=== PATIENT | female | born 1995 | race African-American/Black ===

== ENCOUNTER 2019-10-23 15:31 | Inpatient (IN) | payer MEDICAID ==
--- NOTE | 2019-10-23 17:00 | RAD ---
Exam:Right elbow 4 view HISTORY: Possible septic elbow. Trauma one week ago. COMPARISON: None FINDINGS: Soft tissue swelling. No obvious capsular distention to suggest joint effusion. No erosive or destructive changes. Preserved joint spaces. No fracture. IMPRESSION: Soft tissue swelling. Correlate for cellulitis.
[2019-10-23 18:51] LABS: #Basophils 0.1 thou/uL (0.0-0.2); #Eosinphils 0.2 thou/uL (0.0-0.7); #Lymphocytes 1.5 thou/uL (1.20-3.40); #Monocytes 1.4 thou/uL (0.11-0.59); #Neutrophils 16.1 thou/uL (1.40-6.50); %Basophils 0.5 % (0.0-1.0); %Eosinophils 0.8 % (0.0-10.0); %Lymphocytes 7.8 % (21.0-51.0); %Monocytes 7.3 % (0.0-10.0); %Neutrophils 83.6 % (42.0-75.0); Hemoglobin 14.6 g/dL (12.0-16.0); Mean Corpuscular HGB CONC 31.6 g/dL (32.0-36.0); Mean Corpuscular Volume 94.9 fL (78.0-98.0); Platelet Count 289 thou/uL (130-400); RBC Distribution Width 12.7 % (11.5-14.5); Red Blood Cell (RBC) Count 4.85 mill/uL (4.20-5.40); White Blood Cell (WBC) Count 19.2 thou/uL (4.8-10.8)
[2019-10-23 19:10] LABS: ALT (SGPT) 38 U/L (8-55); AST (SGOT) 17 U/L (5-34); Alkaline Phosphatase 75 U/L (40-110); Anion Gap 15 mmol/L (10-20); BUN (Urea Nitrogen) 5 mg/dL (7.0-18.7); Bilirubin, Total 0.6 mg/dL (0.2-1.2); Calc. Creatinine Clearance 0 mL/min (70-130); Calcium 9.9 mg/dL (7.8-10.44); Carbon Dioxide 23 mmol/L (22-29); Chloride 109 mmol/L (98-107); Estimated GFR-MDRD Greater than 90; Globulin 4.1 g/dL (2.4-3.5); Glucose 79 mg/dL (70-105); Potassium 4.4 mmol/L (3.5-5.1); Protein, Total 8.1 g/dL (6.0-8.3); Sodium 143 mmol/L (136-145)
[2019-10-23] MEDS ORDERED: Senokot S 8.6-50 MG TAB PO PRN (20:13)
[2019-10-23] MEDS ORDERED: Ondansetron PF 4 MG/2 ML Vial IVP PRN (20:13)
--- NOTE | 2019-10-23 20:13 | PDOC.HHP ---
Hospitalist HPI - History of Present Illness Righ elbow pain History of Present Illness: Patient with PMH of developmental delay presents to ED for evaluation of right elbow swelling and pain. Overall all patient is a poor historian hence history is obtained from patient and nursing care partner. They state patient suffered a fall from standing about 1 week ago that caused small abrasion to right elbow region. Over the last several day area has become more swollen and tender to the point that now any passive motion causes significant discomfort. She does not believe there has been any fever or chills. On exam she does not appear toxic but does seem to be in significant pain. She is tachycardic with HRs in the 130s. Initial ED evaluation shows leukocytosis of 19.2, lactic acid elevated at 3.6. ED Course: IVF, broad spectrum abx initiated Ortho service consulted Hospitalist ROS - Review of Systems Constitutional: denies: fever, chills, sweats, weakness, malaise, other Respiratory: denies: cough, dry, shortness of breath, hemoptysis, SOB with excertion, pleuritic pain, sputum, wheezing, other Cardiovascular: denies: chest pain, palpitations, orthopnea, paroxysmal noc. dyspnea, edema, light headedness, other Gastrointestinal: denies: nausea, vomiting, abdominal pain, diarrhea, constipation, melena, hematochezia, other Musculoskeletal: reports: arm pain (Refers worsening right elbow pain & swelling after small trauma to elbow about 7 days ago) Hospitalist History - Past Medical History Other Medical History: Developmental delay - Exam General Appearance: awake alert Eye: PERRL ENT: normocephalic atraumatic Neck: supple, no JVD, no lymphadenopathy Heart - other findings: Sinus tachycardia Extremities - other findings: Right elbow edema, small laceration to area Psychiatric: normal affect (Developmental delay) Hospitalist Results - Labs Result Diagrams: 10/23/19 18:36 10/23/19 18:36 Lab results: WBC 19.2 thou/uL (4.8-10.8) H 10/23/19 18:36 Hgb 14.6 g/dL (12.0-16.0) 10/23/19 18:36 Hct 46.0 % (36.0-47.0) 10/23/19 18:36 MCV 94.9 fL (78.0-98.0) 10/23/19 18:36 Plt Count 289 thou/uL (130-400) 10/23/19 18:36 Neutrophils % 83.6 % (42.0-75.0) H 10/23/19 18:36 Sodium 143 mmol/L (136-145) 10/23/19 18:36 Potassium 4.4 mmol/L (3.5-5.1) 10/23/19 18:36 Chloride 109 mmol/L (98-107) H 10/23/19 18:36 Carbon Dioxide 23 mmol/L (22-29) 10/23/19 18:36 BUN 5 mg/dL (7.0-18.7) L 10/23/19 18:36 Creatinine 0.76 mg/dL (0.6-1.1) 10/23/19 18:36 Glucose 79 mg/dL (70-105) 10/23/19 18:36 Lactic Acid 3.6 mmol/L (0.5-2.2) H 10/23/19 18:36 Calcium 9.9 mg/dL (7.8-10.44) 10/23/19 18:36 Total Bilirubin 0.6 mg/dL (0.2-1.2) 10/23/19 18:36 AST 17 U/L (5-34) 10/23/19 18:36 ALT 38 U/L (8-55) 10/23/19 18:36 Alkaline Phosphatase 75 U/L (40-110) 10/23/19 18:36 C-Reactive Protein 10.76 mg/dL (= or < 0.5) H 10/23/19 18:36 Serum Total Protein 8.1 g/dL (6.0-8.3) 10/23/19 18:36 Albumin 4.0 g/dL (3.5-5.0) 10/23/19 18:36 - Radiology Interpretation Other Status: image reviewed by me Additional Comment: Elbow x-ray with soft tissue swelling Hospitalist H&P A/P - Plan Plan: Problem List Right elbow cellulitis vs septic joint Sepsis Elevated lactic acid Leukocytosis Sinus tachycardia Assessment/Plan Presents with worsening right elbow swelling, pain after trauma due to fall. Findings positive for leukocytosis, elevated lactic acid, tachycardia all suggestive of sepsis in setting of cellulitis vs septic joint. Admit patient to telemetry Will keep NPO after midnight until seen by ortho service Blood cultures obtained Check CRP/ESR in AM Continue with generous IVF resuscitation Continue with broad spectrum abx Monitor hemodynamics closely Tylenol and PO narcotic for pain control Pending cultures will adjust abx regimen Orthopedic service has been consulted for further advice
[2019-10-23] MEDS ORDERED: Ketorolac Tromethamine 30 MG/ML VIAL ONE (20:22)
[2019-10-23] MEDS ORDERED: Cefepime 2 GM in Sodium Chloride 0.9% 100 ML IVPB SCH (21:00)
[2019-10-23] MEDS ORDERED: Vancomycin HCl 500 MG in Sodium Chloride 0.9% 100 ML IVPB SCH (21:30)
[2019-10-24 00:42] LABS: #Basophils 0.1 thou/uL (0.0-0.2); #Eosinphils 0.3 thou/uL (0.0-0.7); #Lymphocytes 1.3 thou/uL (1.20-3.40); #Monocytes 1.5 thou/uL (0.11-0.59); #Neutrophils 16.2 thou/uL (1.40-6.50); %Basophils 0.5 % (0.0-1.0); %Eosinophils 1.3 % (0.0-10.0); %Lymphocytes 6.6 % (21.0-51.0); %Monocytes 7.7 % (0.0-10.0); %Neutrophils 83.9 % (42.0-75.0); Hemoglobin 13.8 g/dL (12.0-16.0); Mean Corpuscular HGB CONC 31.3 g/dL (32.0-36.0); Mean Corpuscular Hemoglobin 30.2 pg (27.0-31.0); Mean Corpuscular Volume 96.5 fL (78.0-98.0); Mean Platelet Volume 7.7 fL (7.4-10.4); Platelet Count 301 thou/uL (130-400); RBC Distribution Width 12.8 % (11.5-14.5); Red Blood Cell (RBC) Count 4.55 mill/uL (4.20-5.40); White Blood Cell (WBC) Count 19.3 thou/uL (4.8-10.8)
[2019-10-24 00:57] LABS: Lactic Acid 2.5 mmol/L (0.5-2.2)
[2019-10-24] MEDS: Heparin 5,000 UNITS/ML VIAL SC SCH ×4 (01:09→21:20)
[2019-10-24 01:11] LABS: ALT (SGPT) 31 U/L (8-55); AST (SGOT) 17 U/L (5-34); Albumin 3.5 g/dL (3.5-5.0); Alkaline Phosphatase 69 U/L (40-110); Anion Gap 15 mmol/L (10-20); BUN (Urea Nitrogen) 5 mg/dL (7.0-18.7); Bilirubin, Total 0.4 mg/dL (0.2-1.2); CRP (Inflammatory) 12.78 mg/dL (= or < 0.5); Calc. Creatinine Clearance 176 mL/min (70-130); Calcium 9.3 mg/dL (7.8-10.44); Carbon Dioxide 21 mmol/L (22-29); Chloride 108 mmol/L (98-107); Estimated GFR-MDRD Greater than 90; Globulin 3.8 g/dL (2.4-3.5); Glucose 109 mg/dL (70-105); Potassium 4.1 mmol/L (3.5-5.1); Protein, Total 7.3 g/dL (6.0-8.3); Sodium 140 mmol/L (136-145)
[2019-10-24] MEDS: Vancomycin 1.5 GRAM/300 ML BAG 1.5 GM in Premix Bag 1 BAG IVPB SCH ×3 (05:52→23:02)
[2019-10-24] MEDS: Acetaminophen 325 MG TAB PO PRN (08:45)
[2019-10-24 10:27] LABS: #Eosinphils 0.3 thou/uL (0.0-0.7); #Lymphocytes 1.4 thou/uL (1.20-3.40); #Monocytes 1.4 thou/uL (0.11-0.59); #Neutrophils 14.5 thou/uL (1.40-6.50); %Basophils 0.1 % (0.0-1.0); %Eosinophils 1.7 % (0.0-10.0); %Lymphocytes 8.1 % (21.0-51.0); %Monocytes 8.1 % (0.0-10.0); %Neutrophils 82.2 % (42.0-75.0); Hemoglobin 12.6 g/dL (12.0-16.0); Mean Corpuscular HGB CONC 31.7 g/dL (32.0-36.0); Mean Corpuscular Hemoglobin 30.1 pg (27.0-31.0); Mean Corpuscular Volume 95.1 fL (78.0-98.0); Mean Platelet Volume 7.9 fL (7.4-10.4); Platelet Count 292 thou/uL (130-400); RBC Distribution Width 12.7 % (11.5-14.5); White Blood Cell (WBC) Count 17.6 thou/uL (4.8-10.8)
[2019-10-24 10:52] LABS: Lactic Acid 0.9 mmol/L (0.5-2.2)
[2019-10-24] MEDS: HYDROcodone/Acetaminophen 5/325 mg Tablet PO PRN ×2 (11:41→22:12)
[2019-10-24] MEDS: Lactated Ringer's 1,000 ML IV SCH (12:40)
[2019-10-24] MEDS: Cefepime 2 GM in Sodium Chloride 0.9% 100 ML IVPB SCH (12:41)
[2019-10-24] MEDS ORDERED: Chloraseptic Spray 180 ml Bottle PO PRN (14:17)
[2019-10-24] MEDS ORDERED: Bisacodyl 10 MG SUPP PR PRN (14:17)
[2019-10-24] MEDS ORDERED: Calcium Carbonate 500 MG ChewTAB PO PRN (14:17)
[2019-10-24] MEDS ORDERED: Simethicone Chewable 80 MG TAB PO PRN (14:17)
--- NOTE | 2019-10-24 15:05 | PDOC.HOSPP ---
- Subjective Subjective: Seen and examined patient's mental status is at her baseline when conferring with care facility where she is being taking care of at "[facility]" where she is a chronic resident. Per staff patient has emotional outbursts and can become violent at times. Occasional refusing medications. On my evaluation she is overly lethargic and difficult to keep her eyes open for much time. She will let me examined her right arm each does have obvious swelling and cellulitis type changes with a abrasion on the elbow. Orthopedic surgery has been consulted, recommendations appreciated. - Objective Vital Signs & Weight: Vital Signs (12 hours) Temp Pulse Resp BP Pulse Ox 10/24/19 11:34 98.8 F 113 H 16 122/74 100 10/24/19 08:00 98 10/24/19 07:27 99.3 F 121 H 18 105/58 L 98 10/24/19 04:07 100.0 F H 146 H 16 122/64 97 Weight Weight 220 lb 7.396 oz I&O: 10/23/19 10/24/19 10/25/19 06:59 06:59 06:59 Intake Total 917 Balance 917 Result Diagrams: 10/24/19 10:11 10/24/19 00:25 Radiology Reviewed by me: Yes Hospitalist ROS - Review of Systems All other systems reviewed; all pertinent +/- noted in HPI/Subj - Medication Medications: Active Medications Generic Name Dose Route Start Last Admin Trade Name Freq PRN Reason Stop Dose Admin Acetaminophen 650 mg 10/23/19 20:13 10/24/19 08:45 Tylenol PO 650 mg Q4H PRN Administration Headache/Fever/Mild Pain (1-3) Hydrocodone Bitart/Acetaminophen 1 tab 10/23/19 20:13 10/24/19 11:41 [place] 5/325 PO 1 tab Q4H PRN Administration Moderate Pain (4-6) Heparin Sodium (Porcine) 5,000 units 10/23/19 21:00 10/24/19 14:13 Heparin SC 5,000 units TID TIFFANY Administration Vancomycin HCl 1.5 gm/ Device 300 mls @ 200 mls/hr 10/24/19 06:00 10/24/19 14 :13 IVPB 300 mls Q8HR TIFFANY Administration Cefepime HCl 2 gm/ Sodium 100 mls @ 200 mls/hr 10/24/19 13:00 10/24/19 12:41 Chloride IVPB 100 mls 0100,1300 TIFFANY Administration Lactated Ringer's 1,000 mls @ 75 mls/hr 10/24/19 11:45 10/24/19 12:40 Lactated Ringer's IV 1,000 mls .[id number] TIFFANY Administration Sodium Chloride 10 ml 10/24/19 09:00 10/24/19 08:46 Flush - Normal Saline IVF Not Given Q12HR TIFFANY - Exam General Appearance: NAD Eye: PERRL, anicteric sclera ENT: normocephalic atraumatic, moist mucosa Neck: supple, symmetric, no lymphadenopathy Heart: RRR, no murmur, no gallops, no rubs Respiratory: CTAB, no wheezes, no rales, no ronchi, normal chest expansion Gastrointestinal: soft, non-tender, non-distended, normal bowel sounds, no guarding, no rigidity Extremities: 1+ LE edema Extremities - other findings: Arm swelling over the elbow - right Skin - other findings: Right arm abrasion - see wound care pictures for details. Neurological: cranial nerve grossly intact, no focal deficits Musculoskeletal: generalized weakness Psychiatric: flat affect, lethargic Hosp A/P (1) Joint infection Code(s): M00.9 - PYOGENIC ARTHRITIS, UNSPECIFIED Status: Acute (2) Cellulitis Code(s): L03.90 - CELLULITIS, UNSPECIFIED Status: Acute (3) Sepsis Code(s): A41.9 - SEPSIS, UNSPECIFIED ORGANISM Status: Acute (4) Lactic acid acidosis Code(s): E87.2 - ACIDOSIS Status: Acute (5) Bipolar 1 disorder Code(s): F31.9 - BIPOLAR DISORDER, UNSPECIFIED Status: Acute (6) Mood disorder Code(s): F39 - UNSPECIFIED MOOD [AFFECTIVE] DISORDER Status: Acute - Plan Plan: medical unit with telemetry orthopedic surgery consultation, recommendations appreciated may require surgical intervention broad-spectrum antibiotics, coverage for nosocomial infections blood culture, wound culture as able de-escalate to culture and sensitivity as able continue home medications as able continue psychiatric medications for mood stabilization blood pressure control blood sugar control G.I. prophylaxis DVT prophylaxis
[2019-10-24] MEDS: Nystatin Powder 15 GM BOT TOP SCH ×2 (16:34→21:21)
[2019-10-24] MEDS ORDERED: ADAPALENE TOP SCH ×2 (21:00)
[2019-10-24] MEDS: Famotidine 20 MG TAB PO SCH (21:19)
[2019-10-24] MEDS: Melatonin 3 MG TAB PO SCH (21:20)
--- NOTE | 2019-10-24 21:36 | CON ---
DATE OF CONSULTATION: 10/24/2019 REQUESTING PHYSICIAN: Clint Parish MD CONSULTING PHYSICIAN: Sunil Subramanian MD REASON FOR CONSULTATION: Right elbow pain. BRIEF CLINICAL HISTORY: Lubna is a 24-year-old female with past medical history significant for developmental delay, who was admitted to the emergency room by the Medicine Service last night. Apparently, she fell landing on her right elbow about a week ago, sustained an abrasion. Over the last few days, it has become more swollen, tender and uncomfortable. They presented to the emergency room and admitted by the Medicine Service and she had a leukocytosis of 19.2. Elbow swollen and painful. Plain radiographs were nonrevealing and our service has been consulted for evaluation of the elbow. She has been started on vancomycin and Maxipime by the admitting service. No fever, chills, nausea, vomiting, or other constitutional symptoms precede the swelling and pain of the elbow. PHYSICAL EXAMINATION: Visual inspection of the right upper extremity demonstrated to have a swollen right elbow with some breakthrough purulence noted at the olecranon bursa. Diffuse edema is also appreciated. She can extend the arm, but flexion past 90 is uncomfortable for her. She has good digital excursion. Little bit swelling of the forearm is also noted and some erythema posteriorly. It is fluctuant at the olecranon bursa consistent with septic process. IMPRESSION: Right elbow posttraumatic septic bursitis, strongly suspect Staph or methicillin-resistant Staphylococcus aureus. PLAN: 1. agree with vancomycin and Maxipime to cool the elbow down and I will plan for n.p.o. after midnight with an irrigation debridement exploration tomorrow afternoon. The risks, benefits, options, alternatives, and rationale for proceeding with I and D has been explained in great detail to the patient and her caregiver. All questions were answered. No guarantee of outcome stated or implied. 2. Please see orders. 3. We will attempt to locate and find a power of transactional attorney for this particular patient to proceed. Job ID: [id number]
[2019-10-24 22:34] LABS: Vancomycin, Trough 11.2 ug/mL
[2019-10-24] MEDS ORDERED: Vancomycin HCl 1.75 GM in Sodium Chloride 0.9% 500 ML IVPB SCH (23:00)
[2019-10-25] MEDS: Cefepime 2 GM in Sodium Chloride 0.9% 100 ML IVPB SCH ×2 (01:21→17:41)
[2019-10-25] MEDS: Levothyroxine Sodium 75 MCG TAB PO SCH (05:05)
[2019-10-25 05:53] LABS: Anion Gap 13 mmol/L (10-20); BUN (Urea Nitrogen) 6 mg/dL (7.0-18.7); Calc. Creatinine Clearance 184 mL/min (70-130); Carbon Dioxide 25 mmol/L (22-29); Chloride 112 mmol/L (98-107); Estimated GFR-MDRD Greater than 90; Glucose 94 mg/dL (70-105); Potassium 3.8 mmol/L (3.5-5.1); Sodium 146 mmol/L (136-145)
[2019-10-25] MEDS: Vancomycin HCl 1.75 GM in Sodium Chloride 0.9% 500 ML IVPB SCH ×3 (06:26→23:45)
[2019-10-25 07:55] LABS: #Eosinphils 0.3 thou/uL (0.0-0.7); #Monocytes 1.7 thou/uL (0.11-0.59); #Neutrophils 13.8 thou/uL (1.40-6.50); %Basophils 0.1 % (0.0-1.0); %Eosinophils 1.7 % (0.0-10.0); %Lymphocytes 11.4 % (21.0-51.0); %Monocytes 9.5 % (0.0-10.0); %Neutrophils 77.3 % (42.0-75.0); Hemoglobin 12.6 g/dL (12.0-16.0); Mean Corpuscular HGB CONC 32.4 g/dL (32.0-36.0); Mean Corpuscular Hemoglobin 30.8 pg (27.0-31.0); Mean Corpuscular Volume 95.2 fL (78.0-98.0); Mean Platelet Volume 7.7 fL (7.4-10.4); Platelet Count 295 thou/uL (130-400); RBC Distribution Width 12.5 % (11.5-14.5); White Blood Cell (WBC) Count 17.9 thou/uL (4.8-10.8)
[2019-10-25] MEDS: Famotidine 20 MG TAB PO SCH ×2 (10:24→21:54)
[2019-10-25] MEDS: Lactinex Tablet PO SCH (10:24)
[2019-10-25] MEDS: Polyethylene Glycol 3350 17 GM Packet PO SCH (10:24)
[2019-10-25] MEDS: Bupropion 100 MG SR TAB PO SCH (10:25)
[2019-10-25] MEDS: Lithium Carbonate ER 450 mg Tablet PO SCH (10:26)
[2019-10-25] MEDS: Lactated Ringer's 1,000 ML IV SCH (10:26)
[2019-10-25] MEDS: HYDROcodone/Acetaminophen 5/325 mg Tablet PO PRN ×2 (10:45→17:45)
[2019-10-25] MEDS: Nystatin Powder 15 GM BOT TOP SCH ×3 (10:47→21:55)
[2019-10-25] MEDS ORDERED: LEVONORGESTREL ETHIN ESTRADIOL PO SCH (12:00)
[2019-10-25] MEDS ORDERED: Midazolam HCl 2 mg/2 ml Vial ONE ×2 (13:36→15:38)
[2019-10-25] MEDS ORDERED: Fentanyl 100 MCG/2 ML VIAL ONE ×3 (13:37→15:38)
[2019-10-25 14:31] LABS: BHCG - Serum Negative (NEGATIVE); Pregs Control Background? CLEAR/WHITE (CLR/WHITE); Pregs Control Bar Appear? YES (CONTROL BAR)
[2019-10-25] MEDS ORDERED: Vancomycin 1.5 GRAM/300 ML BAG 1.5 GM/300 ML BAG ONE (14:33)
[2019-10-25] MEDS: Heparin 5,000 UNITS/ML VIAL SC SCH ×3 (14:35→21:54)
[2019-10-25] MEDS ORDERED: Glycopyrrolate 0.2 MG/ML 5 ML SYRINGE ONE (15:44)
[2019-10-25] MEDS ORDERED: Rocuronium Bromide 10 MG/ML (10ML VIAL) ONE (15:44)
[2019-10-25] MEDS ORDERED: PROPOFOL 200 MG/20 ML VIAL ONE (15:44)
[2019-10-25] MEDS ORDERED: Lidocaine 1% PF 5 ML VIAL ONE (15:44)
[2019-10-25] MEDS ORDERED: SUGAMMADEX SODIUM 200 MG/2 ML VIAL ONE (16:37)
--- NOTE | 2019-10-25 16:51 | PDOC.HOSPP ---
- Subjective Encounter Date: 10/25/19 Encounter Time: :20 Subjective: Pt seen for followup re: cellulitis. Denies chest pain or shortness of breath. - Objective Vital Signs & Weight: Vital Signs (12 hours) Temp Pulse Resp BP Pulse Ox 10/25/19 11:22 99.5 F 129 H 18 127/69 99 10/25/19 08:30 99 10/25/19 07:26 99.0 F 123 H 20 137/79 99 Weight Weight 220 lb 7.396 oz I&O: 10/24/19 10/25/19 10/26/19 06:59 06:59 06:59 Intake Total 917 1925 Balance 917 1925 Result Diagrams: 10/25/19 07:26 10/25/19 05:00 Additional Labs: Labs and MARs reviewed by me EKG Reviewed by me: Yes (Tele: sinus tachycardia) Hospitalist ROS - Review of Systems Constitutional: denies: fever, chills, sweats, weakness, malaise Respiratory: denies: cough, shortness of breath, SOB with excertion, pleuritic pain, wheezing Cardiovascular: denies: chest pain, palpitations, orthopnea, paroxysmal noc. dyspnea, edema, light headedness Gastrointestinal: denies: nausea, vomiting, abdominal pain, diarrhea, constipation, melena, hematochezia Musculoskeletal: reports: arm pain. denies: neck pain, shoulder pain, back pain , hand pain, leg pain, foot pain - Medication Medications: Active Medications Generic Name Dose Route Start Last Admin Trade Name Freq PRN Reason Stop Dose Admin Acetaminophen 650 mg 10/23/19 20:13 10/24/19 08:45 Tylenol PO 650 mg Q4H PRN Administration Headache/Fever/Mild Pain (1-3) Hydrocodone Bitart/Acetaminophen 1 tab 10/23/19 20:13 10/25/19 10:45 [place] 5/325 PO 1 tab Q4H PRN Administration Moderate Pain (4-6) Hydrocodone Bitart/Acetaminophen 2 tab 10/23/19 20:13 10/24/19 22:12 [place] 5/325 PO 2 tab Q4H PRN Administration Severe Pain (7-10) Acidophilus 1 tab 10/25/19 09:00 10/25/19 10:24 Floranex PO 1 tab DAILY TIFFANY Administration Bupropion HCl 300 mg 10/25/19 09:00 10/25/19 10:25 Wellbutrin Sr PO 300 mg DAILY TIFFANY Administration Cholecalciferol 3,000 units 10/25/19 09:00 10/25/19 10:24 Vitamin D3 PO 3,000 units DAILY TIFFANY Administration Famotidine 40 mg 10/24/19 21:00 10/25/19 10:24 Pepcid PO 40 mg BID TIFFANY Administration Heparin Sodium (Porcine) 5,000 units 10/23/19 21:00 10/25/19 14:35 Heparin SC Not Given TID TIFFANY Cefepime HCl 2 gm/ Sodium 100 mls @ 200 mls/hr 10/24/19 13:00 10/25/19 01:21 Chloride IVPB 100 mls 0100,1300 TIFFANY Administration Lactated Ringer's 1,000 mls @ 75 mls/hr 10/24/19 11:45 10/25/19 10:26 Lactated Ringer's IV Not Given .[id number] TIFFANY Vancomycin HCl 1.75 gm/ Sodium 500 mls @ 250 mls/hr 10/25/19 06:00 10/25/19 06:26 Chloride IVPB 500 mls Q8HR TIFFANY Administration Levothyroxine Sodium 75 mcg 10/25/19 06:00 10/25/19 05:05 Synthroid PO 75 mcg 0600 TIFFANY Administration [place] Carbonate 900 mg 10/25/19 09:00 10/25/19 10:26 Eskalith Er PO 900 mg DAILY TIFFANY Administration Melatonin 6 mg 10/24/19 21:00 10/24/19 21:20 Melatonin PO 6 mg HS TIFFANY Administration Nystatin 0 gm 10/24/19 15:00 10/25/19 10:47 Mycostatin Powder TOP 1 applic TID TIFFANY Administration Polyethylene Glycol 8.5 gm 10/25/19 09:00 10/25/19 10:24 Miralax PO 8.5 gm DAILY TIFFANY Administration Sodium Chloride 10 ml 10/24/19 09:00 10/25/19 10:46 Flush - Normal Saline IVF Not Given Q12HR TIFFANY - Exam General Appearance: awake alert Eye: anicteric sclera ENT: normocephalic atraumatic, moist mucosa Neck: supple, symmetric, no thyromegaly, no lymphadenopathy Heart: no gallops, no rubs Heart - other findings: S1, S2, tachy, reg Respiratory: CTAB, no wheezes, no rales, no ronchi Gastrointestinal: soft, non-tender, non-distended, normal bowel sounds Psychiatric: normal affect, normal behavior Hosp A/P - Plan - Assessment (1) Cellulitis Code(s): L03.90 - CELLULITIS, UNSPECIFIED Status: Acute (2) Joint infection Code(s): M00.9 - PYOGENIC ARTHRITIS, UNSPECIFIED Status: Acute (3) Sepsis Code(s): A41.9 - SEPSIS, UNSPECIFIED ORGANISM Status: Acute (4) Bipolar 1 disorder Code(s): F31.9 - BIPOLAR DISORDER, UNSPECIFIED Status: Chronic (5) Mood disorder Code(s): F39 - UNSPECIFIED MOOD [AFFECTIVE] DISORDER Status: Chronic (6) Lactic acid acidosis Code(s): E87.2 - ACIDOSIS Status: Resolved - Plan For irrigation/debridement. Continue IV cefepime and IV vancomycin. Continue IV fluids Lactic acidosis resolved
[2019-10-25] MEDS ORDERED: Ondansetron HCl/PF 4 MG/2 ML Vial IVP PRN (16:55)
[2019-10-25] MEDS: Melatonin 3 MG TAB PO SCH (21:54)
[2019-10-25 23:20] LABS: Vancomycin, Trough 23.7 ug/mL
--- NOTE | 2019-10-26 00:04 | OP ---
DATE OF PROCEDURE: 10/25/2019 PROCEDURE PERFORMED: Incision and drainage of right posterior elbow. PREOPERATIVE DIAGNOSIS: Right septic olecranon bursitis. POSTOPERATIVE DIAGNOSIS: Right septic olecranon bursitis. COMPLICATIONS: None. ESTIMATED BLOOD LOSS: Minimal. CIRCLE EDGER: Karthik Villarreal PA-C INDICATIONS FOR PROCEDURE: Ms. Rondon is a 24-year-old female, who has developed septic olecranon bursitis. She has failed to improve significantly on antibiotics. She has been indicated for incision and drainage. Risks have been reviewed in detail. She has elected to proceed with the operation. DESCRIPTION OF PROCEDURE: Ms. Rondon was identified in the preoperative holding area. Her correct extremity was marked. She was carried to the operating room. She was positioned supine. General anesthesia was induced. A multidisciplinary time-out was performed. The patient is on preoperative antibiotics scheduled on the floor. The right upper extremity was prepped and draped. We then made a small incision of the posterior elbow over the olecranon bursa. We dissected down through the subcutaneous tissues to the bursal space. We encountered purulent material. We then cultured this. Next, we thoroughly irrigated with copious lavage. We trimmed the skin edges. We used a curette and a rongeur to debride the deep tissues of the posterior elbow. There was a cavity which was cleansed. We again thoroughly irrigated. We then packed likely some iodoform gauze. At this point, we loosely closed the margins of the wound. A sterile dressing was applied. The patient was taken to the recovery room in good condition. Job ID: [id number]
[2019-10-26] MEDS: Cefepime 2 GM in Sodium Chloride 0.9% 100 ML IVPB SCH ×2 (00:45→14:10)
[2019-10-26] MEDS: Acetaminophen 325 MG TAB PO PRN (00:45)
[2019-10-26 03:41] LABS: ALT (SGPT) 21 U/L (8-55); AST (SGOT) 20 U/L (5-34); Alkaline Phosphatase 71 U/L (40-110); Anion Gap 15 mmol/L (10-20); BUN (Urea Nitrogen) 6 mg/dL (7.0-18.7); Bilirubin, Total 0.6 mg/dL (0.2-1.2); Calc. Creatinine Clearance 192 mL/min (70-130); Calcium 7.6 mg/dL (7.8-10.44); Carbon Dioxide 21 mmol/L (22-29); Chloride 112 mmol/L (98-107); Estimated GFR-MDRD Greater than 90; Globulin 3.3 g/dL (2.4-3.5); Glucose 105 mg/dL (70-105); Magnesium 1.8 mg/dL (1.6-2.6); Potassium 3.4 mmol/L (3.5-5.1); Protein, Total 6.3 g/dL (6.0-8.3); Sodium 145 mmol/L (136-145)
[2019-10-26 03:55] LABS: CKMB Less than 0.1 ng/mL (0-6.6)
[2019-10-26] MEDS: Vancomycin 1.5 GRAM/300 ML BAG 1.5 GM in Premix Bag 1 BAG IVPB SCH ×3 (04:53→21:41)
[2019-10-26] MEDS: Lactated Ringer's 1,000 ML IV SCH (04:53)
[2019-10-26] MEDS: Levothyroxine Sodium 75 MCG TAB PO SCH (05:00)
[2019-10-26 05:07] LABS: #Basophils 0.1 thou/uL (0.0-0.2); #Eosinphils 0.2 thou/uL (0.0-0.7); #Lymphocytes 2.3 thou/uL (1.20-3.40); #Monocytes 1.9 thou/uL (0.11-0.59); #Neutrophils 13.3 thou/uL (1.40-6.50); %Basophils 0.4 % (0.0-1.0); %Eosinophils 0.9 % (0.0-10.0); %Lymphocytes 13.1 % (21.0-51.0); %Monocytes 10.7 % (0.0-10.0); %Neutrophils 74.8 % (42.0-75.0); Hemoglobin 11.9 g/dL (12.0-16.0); Mean Corpuscular HGB CONC 33.1 g/dL (32.0-36.0); Mean Corpuscular Hemoglobin 31.2 pg (27.0-31.0); Mean Corpuscular Volume 94.3 fL (78.0-98.0); Mean Platelet Volume 7.6 fL (7.4-10.4); Platelet Count 295 thou/uL (130-400); RBC Distribution Width 12.4 % (11.5-14.5); Red Blood Cell (RBC) Count 3.81 mill/uL (4.20-5.40); White Blood Cell (WBC) Count 17.7 thou/uL (4.8-10.8)
[2019-10-26] MEDS ORDERED: Fentanyl 100 MCG/2 ML VIAL ONE (06:13)
[2019-10-26] MEDS ORDERED: Potassium Chloride 20 MEQ TAB PO SCH (07:45)
--- NOTE | 2019-10-26 08:28 | PRG ---
DATE OF SERVICE: 10/26/2019 SUBJECTIVE: Lubna is a 24-year-old female. We performed incision and drainage, irrigation and debridement of right elbow bursitis for suspected purulent bursitis. The procedure itself was little unrevealing, but she did have significant amount of granulation, bursa which was curetted out, but no significant purulence was noted at the time of surgery to account for the severe erythema and pain she has been experiencing. Postoperatively today, she is running a temp earlier this morning and been tachycardic but compensated. Her white count continues to hover around 17. OBJECTIVE: Visual inspection of the right upper extremity demonstrates her to have erythema and edema as before. She still has some puffiness in the forearm and then dorsum and volar aspect of the hand. She has full digital excursion. No complaints of pain in the forearm itself, but does admit to elbow pain. LABORATORY DATA: White blood cell count 17.7. Cultures at this point, no organisms, but still elevated white count and continued pain. IMPRESSION: Right elbow brachium and antebrachial cellulitis. PLAN: We will go ahead and consult with the Wound Care for dressing changes. Also continue to follow clinically. Elevate right upper extremity and continue antibiotics. Re-evaluate tomorrow. Give consideration to MRI right upper extremity should the cellulitis, pain, and edema persist. Job ID: [id number]
[2019-10-26] MEDS: Famotidine 20 MG TAB PO SCH ×2 (09:24→21:41)
[2019-10-26] MEDS: Bupropion 100 MG SR TAB PO SCH (09:24)
[2019-10-26] MEDS: Lactinex Tablet PO SCH (09:24)
[2019-10-26] MEDS: Lithium Carbonate ER 450 mg Tablet PO SCH (09:24)
[2019-10-26] MEDS: Heparin 5,000 UNITS/ML VIAL SC SCH ×3 (09:25→21:58)
[2019-10-26] MEDS: Nystatin Powder 15 GM BOT TOP SCH ×3 (09:25→21:41)
[2019-10-26] MEDS: Polyethylene Glycol 3350 17 GM Packet PO SCH (09:25)
[2019-10-26] MEDS: HYDROcodone/Acetaminophen 5/325 mg Tablet PO PRN ×4 (09:26→21:41)
--- NOTE | 2019-10-26 12:55 | RAD ---
EXAM: CHEST ONE VIEW HISTORY: Infection COMPARISON: 12/23/2018 FINDINGS: The cardiac silhouette and pulmonary vasculature is within normal limits. The lungs are clear. The os seous structures are intact. Chest is stable compared to prior exam. IMPRESSION: No acute cardiopulmonary process.
[2019-10-26 13:49] LABS: Bilirubin Negative (Negative); Blood, Urine 3+ (Negative); Clarity Clear (Clear); Glucose, Urine (Dipstick) Normal (Negative); Leukocyte Negative Leu/uL (Negative); Nitrite Negative (Negative); Protein, Urine (Dipstick) Negative (Neg-Trace); Squamous Epithelial 0-3 HPF (0-3); Urobilinogen Normal mg/dL (Less than 2); WBC/HPF 0-3 HPF (0-3)
[2019-10-26 14:03] LABS: Bacteria/HPF 1+ HPF (None Seen)
[2019-10-26 14:04] LABS: Urine Culture Reflex Yes Yes
--- NOTE | 2019-10-26 16:36 | PDOC.HOSPP ---
- Subjective Encounter Date: 10/26/19 Encounter Time: 07:20 Subjective: Pt seen for followup re: sepsis. Sleepy but arousable, speech incoherent, could not complete ROS. - Objective Vital Signs & Weight: Vital Signs (12 hours) Temp Pulse Resp BP Pulse Ox 10/26/19 15:36 98.3 F 112 H 20 131/75 100 10/26/19 11:47 97.9 F 122 H 16 133/90 100 10/26/19 08:00 99 10/26/19 07:37 98.4 F 115 H 17 132/96 H 99 Weight Weight 220 lb 7.396 oz I&O: 10/25/19 10/26/19 10/27/19 06:59 06:59 06:59 Intake Total 19240 Output Total 2180 Balance 1924 3470 -2180 Result Diagrams: 10/26/19 05:01 10/26/19 03:06 Additional Labs: Labs and MARs reviewed by me EKG Reviewed by me: Yes (Tele: sinus tachycardia) Hospitalist ROS - Review of Systems ROS unobtainable: due to mental status - Medication Medications: Active Medications Generic Name Dose Route Start Last Admin Trade Name Freq PRN Reason Stop Dose Admin Acetaminophen 650 mg 10/23/19 20:13 10/26/19 00:45 Tylenol PO 650 mg Q4H PRN Administration Headache/Fever/Mild Pain (1-3) Hydrocodone Bitart/Acetaminophen 1 tab 10/23/19 20:13 10/26/19 13:11 [place] 5/325 PO 1 tab Q4H PRN Administration Moderate Pain (4-6) Hydrocodone Bitart/Acetaminophen 2 tab 10/23/19 20:13 10/24/19 22:12 [place] 5/325 PO 2 tab Q4H PRN Administration Severe Pain (7-10) Acidophilus 1 tab 10/25/19 09:00 10/26/19 09:24 Floranex PO 1 tab DAILY TIFFANY Administration Bupropion HCl 300 mg 10/25/19 09:00 10/26/19 09:24 Wellbutrin Sr PO 300 mg DAILY TIFFANY Administration Cholecalciferol 3,000 units 10/25/19 09:00 10/26/19 09:24 Vitamin D3 PO 3,000 units DAILY TIFFANY Administration Famotidine 40 mg 10/24/19 21:00 10/26/19 09:24 Pepcid PO 40 mg BID TIFFANY Administration Heparin Sodium (Porcine) 5,000 units 10/23/19 21:00 10/26/19 15:41 Heparin SC 5,000 units TID TIFFANY Administration Cefepime HCl 2 gm/ Sodium 100 mls @ 200 mls/hr 10/24/19 13:00 10/26/19 14:10 Chloride IVPB 100 mls 0100,1300 TIFFANY Administration Lactated Ringer's 1,000 mls @ 75 mls/hr 10/24/19 11:45 10/26/19 04:53 Lactated Ringer's IV 1,000 mls .[id number] TIFFANY Administration Vancomycin HCl 1.5 gm/ Device 300 mls @ 200 mls/hr 10/26/19 04:00 10/26/19 11 :44 IVPB 300 mls 0400,1200,2000 TIFFANY Administration Levothyroxine Sodium 75 mcg 10/25/19 06:00 10/26/19 05:00 Synthroid PO 75 mcg 0600 TIFFANY Administration [place] Carbonate 900 mg 10/25/19 09:00 10/26/19 09:24 Eskalith Er PO 900 mg DAILY TIFFANY Administration Melatonin 6 mg 10/24/19 21:00 10/25/19 21:54 Melatonin PO 6 mg HS TIFFANY Administration Nystatin 0 gm 10/24/19 15:00 10/26/19 15:44 Mycostatin Powder TOP Not Given TID TIFFANY Polyethylene Glycol 8.5 gm 10/25/19 09:00 10/26/19 09:25 Miralax PO Not Given DAILY TIFFANY Sodium Chloride 10 ml 10/24/19 09:00 10/26/19 09:25 Flush - Normal Saline IVF Not Given Q12HR TIFFANY - Exam General Appearance: ill appearing Eye: anicteric sclera ENT: moist mucosa Neck: supple Heart - other findings: S1, S2, reg, tachy Respiratory: CTAB Gastrointestinal: soft, non-tender Extremities: no cyanosis Skin - other findings: s/p R olecranon bursitis I/D Psychiatric: lethargic Hosp A/P - Plan - Assessment (1) Sepsis Code(s): A41.9 - SEPSIS, UNSPECIFIED ORGANISM Status: Acute (2) Olecranon bursitis Code(s): M00.9 - PYOGENIC ARTHRITIS, UNSPECIFIED Status: Acute (3) Cellulitis Code(s): L03.90 - CELLULITIS, UNSPECIFIED Status: Acute (4) Bipolar 1 disorder Code(s): F31.9 - BIPOLAR DISORDER, UNSPECIFIED Status: Chronic (5) Mood disorder Code(s): F39 - UNSPECIFIED MOOD [AFFECTIVE] DISORDER Status: Chronic (6) Lactic acid acidosis Code(s): E87.2 - ACIDOSIS Status: Resolved - Plan s/p irrigation/debridement, follow cultures. Look for alternate sources of infection (check CXR, UA) Continue IV cefepime and IV vancomycin. Continue IV fluids Pt agitated overnight.
[2019-10-26] MEDS: Melatonin 3 MG TAB PO SCH (21:41)
--- NOTE | 2019-10-26 22:00 | EKG ---
Test Reason : CP Blood Pressure : / mmHG Vent. Rate : 131 BPM Atrial Rate : 131 BPM P-R Int : 144 ms QRS Dur : 074 ms QT Int : 296 ms P-R-T Axes : 038 040 033 degrees QTc Int : 437 ms Sinus tachycardia Nonspecific ST and T wave abnormality Abnormal ECG When compared with ECG of 23-DEC-2008 12:15, PREVIOUS ECG IS PRESENT Confirmed by July WHALEY ([id number]) on 10/26/2019 9:59:45 PM Referred By: KVNG Confirmed By:July WHALEY
[2019-10-27] MEDS: Lactated Ringer's 1,000 ML IV SCH ×2 (00:43→15:22)
[2019-10-27] MEDS: Cefepime 2 GM in Sodium Chloride 0.9% 100 ML IVPB SCH ×2 (00:43→15:23)
[2019-10-27] MEDS ORDERED: Lorazepam 2 MG/ML VIAL ONE (02:36)
[2019-10-27] MEDS ORDERED: Lorazepam 2 MG/ML VIAL SLOW IVP SCH (02:45)
[2019-10-27 04:04] LABS: Vancomycin, Trough 16.9 ug/mL
[2019-10-27] MEDS: Vancomycin 1.5 GRAM/300 ML BAG 1.5 GM in Premix Bag 1 BAG IVPB SCH ×2 (04:25→12:49)
[2019-10-27] MEDS: Acetaminophen 325 MG TAB PO PRN (06:28)
[2019-10-27] MEDS: Levothyroxine Sodium 75 MCG TAB PO SCH (06:28)
[2019-10-27 08:47] LABS: Anion Gap 12 mmol/L (10-20); BUN (Urea Nitrogen) 5 mg/dL (7.0-18.7); Calc. Creatinine Clearance 187 mL/min (70-130); Calcium 8.9 mg/dL (7.8-10.44); Carbon Dioxide 24 mmol/L (22-29); Chloride 118 mmol/L (98-107); Estimated GFR-MDRD Greater than 90; Glucose 133 mg/dL (70-105); Potassium 3.2 mmol/L (3.5-5.1); Sodium 151 mmol/L (136-145)
[2019-10-27] MEDS: Heparin 5,000 UNITS/ML VIAL SC SCH ×3 (09:16→21:18)
[2019-10-27] MEDS: Famotidine 20 MG TAB PO SCH ×2 (09:17→21:18)
[2019-10-27] MEDS: HYDROcodone/Acetaminophen 5/325 mg Tablet PO PRN (09:20)
[2019-10-27] MEDS: Bupropion 100 MG SR TAB PO SCH (09:22)
[2019-10-27] MEDS: Nystatin Powder 15 GM BOT TOP SCH ×3 (09:23→21:19)
[2019-10-27] MEDS: Lactinex Tablet PO SCH (09:23)
[2019-10-27] MEDS: Lithium Carbonate ER 450 mg Tablet PO SCH (09:23)
[2019-10-27] MEDS: Polyethylene Glycol 3350 17 GM Packet PO SCH (09:24)
[2019-10-27 09:44] LABS: Band 8 % (5-11); Eosinophils 2 % (0-10); Hemoglobin 11.4 g/dL (12.0-16.0); Hypochromia SLIGHT = 6-15 cells (100X) (0-5/hpf); Lymphocytes 8 % (21-51); MDiff Complete? YES; Mean Corpuscular HGB CONC 31.8 g/dL (32.0-36.0); Mean Corpuscular Hemoglobin 30.4 pg (27.0-31.0); Mean Corpuscular Volume 95.4 fL (78.0-98.0); Monocytes 4 % (0-10); Neutrophil 78 % (42-75); Platelet Count 301 thou/uL (130-400); Platelet Morphology Comment Appears Adequate; RBC Distribution Width 12.4 % (11.5-14.5); Red Blood Cell (RBC) Count 3.75 mill/uL (4.20-5.40); White Blood Cell (WBC) Count 14.2 thou/uL (4.8-10.8)
--- NOTE | 2019-10-27 10:55 | PRG ---
DATE OF SERVICE: 10/27/2019 SUBJECTIVE: Lubna is a 24-year-old female, who is now postop day 2 from incision, irrigation, and debridement of right septic bursitis. Her operative cultures demonstrated Staph aureus with resistance to amoxicillin and piperacillin. Her pain is getting a little better, and subjectively, she admits to this with direct questioning. She is also able to demonstrate flexion and extension of the elbow without any significant problem. OBJECTIVE: VITAL SIGNS: Temperature 97.8, pulse 105, respiratory rate 16, O2 saturation 99% on room air, blood pressure 124/72. GENERAL: She is alert, responsive and appropriate with examiner. EXTREMITIES: Visual inspection of the right upper extremity demonstrates to have a little bit of decrease in the puffiness of the antebrachium and hand. Skin is not quite as tense working up the brachium above the operative site and no strike through on the dressing. She has good digital excursion and she can actively flex and extend the elbow as compared to yesterday she could not. LABORATORY DATA: White blood cell count is 14.2 and trending down. Culture demonstrated staph aureus with amoxicillin and piperacillin resistance. IMPRESSION: Right elbow septic olecranon bursitis with significant cellulitis. PLAN: 1. Continue wound care. 2. Dr. Giordano has been consulted. 3. Continue to follow. Job ID: [id number]
[2019-10-27 11:48] VITALS: BMI 35.6
--- NOTE | 2019-10-27 14:57 | PDOC.HOSPP ---
- Subjective Encounter Date: 10/27/19 Encounter Time: 07:20 Subjective: Pt seen for followup re: sepsis. Answering some questions. - Objective Vital Signs & Weight: Vital Signs (12 hours) Temp Pulse Resp BP Pulse Ox 10/27/19 11:45 97.9 F 103 H 16 138/95 H 100 10/27/19 07:50 97.8 F 105 H 16 124/72 99 Weight Admit Weight 220 lb 7.36 oz Weight 220 lb 7.36 oz I&O: 10/26/19 10/27/19 10/28/19 06:59 06:59 06:59 Intake Total 3470 4632 Output Total 6730 Balance 3690 -2094 Result Diagrams: 10/27/19 08:01 10/27/19 08:01 Additional Labs: Labs and MARs reviewed by me EKG Reviewed by me: Yes (Tele: sinus tachycardia) Hospitalist ROS - Review of Systems Cardiovascular: denies: chest pain, palpitations, orthopnea, paroxysmal noc. dyspnea, edema, light headedness Musculoskeletal: reports: arm pain - Medication Medications: Active Medications Generic Name Dose Route Start Last Admin Trade Name Freq PRN Reason Stop Dose Admin Acetaminophen 650 mg 10/23/19 20:13 10/27/19 06:28 Tylenol PO 650 mg Q4H PRN Administration Headache/Fever/Mild Pain (1-3) Hydrocodone Bitart/Acetaminophen 1 tab 10/23/19 20:13 10/27/19 09:20 [place] 5/325 PO 1 tab Q4H PRN Administration Moderate Pain (4-6) Hydrocodone Bitart/Acetaminophen 2 tab 10/23/19 20:13 10/26/19 21:41 [facility] 5/325 PO 2 tab Q4H PRN Administration Severe Pain (7-10) Acidophilus 1 tab 10/25/19 09:00 10/27/19 09:23 Floranex PO 1 tab DAILY TIFFANY Administration Bupropion HCl 300 mg 10/25/19 09:00 10/27/19 09:22 Wellbutrin Sr PO 300 mg DAILY TIFFANY Administration Cholecalciferol 3,000 units 10/25/19 09:00 10/27/19 09:17 Vitamin D3 PO 3,000 units DAILY TIFFANY Administration Famotidine 40 mg 10/24/19 21:00 10/27/19 09:17 Pepcid PO 40 mg BID ITFFANY Administration Heparin Sodium (Porcine) 5,000 units 10/23/19 21:00 10/27/19 09:16 Heparin SC 5,000 units TID TIFFANY Administration Cefepime HCl 2 gm/ Sodium 100 mls @ 200 mls/hr 10/24/19 13:00 10/27/19 00:43 Chloride IVPB 100 mls 0100,1300 TIFFANY Administration Lactated Ringer's 1,000 mls @ 75 mls/hr 10/24/19 11:45 10/27/19 00:43 Lactated Ringer's IV 1,000 mls .[id number] TIFFANY Administration Vancomycin HCl 1.5 gm/ Device 300 mls @ 200 mls/hr 10/26/19 04:00 10/27/19 12 :49 IVPB 300 mls 0400,1200,2000 TIFFANY Administration Levothyroxine Sodium 75 mcg 10/25/19 06:00 10/27/19 06:28 Synthroid PO 75 mcg 0600 TIFFANY Administration [place] Carbonate 900 mg 10/25/19 09:00 10/27/19 09:23 Eskalith Er PO 900 mg DAILY TIFFANY Administration Melatonin 6 mg 10/24/19 21:00 10/26/19 21:41 Melatonin PO 6 mg HS TIFFANY Administration Nystatin 0 gm 10/24/19 15:00 10/27/19 09:23 Mycostatin Powder TOP 1 applic TID TIFFANY Administration Polyethylene Glycol 8.5 gm 10/25/19 09:00 10/27/19 09:24 Miralax PO Not Given DAILY TIFFANY Sodium Chloride 10 ml 10/24/19 09:00 10/27/19 09:24 Flush - Normal Saline IVF Not Given Q12HR TIFFANY - Exam General Appearance: awake alert Eye: anicteric sclera ENT: moist mucosa Neck: supple Heart - other findings: S1, S2, tachy, reg Respiratory: CTAB Gastrointestinal: soft, non-tender Extremities: no cyanosis Psychiatric: normal affect, normal behavior Hosp A/P - Plan - Assessment (1) Sepsis Code(s): A41.9 - SEPSIS, UNSPECIFIED ORGANISM Status: Acute (2) Olecranon bursitis Code(s): M00.9 - PYOGENIC ARTHRITIS, UNSPECIFIED Status: Acute (3) Cellulitis Code(s): L03.90 - CELLULITIS, UNSPECIFIED Status: Acute (4) Mood disorder Code(s): F39 - UNSPECIFIED MOOD [AFFECTIVE] DISORDER Status: Chronic (5) Bipolar 1 disorder Code(s): F31.9 - BIPOLAR DISORDER, UNSPECIFIED Status: Chronic - Plan Staph aureus in culture. CXR and UA unremarkable Continue IV cefepime and IV vancomycin. Continue IV fluids Consult ID service.
[2019-10-27] MEDS: Cephalexin 250 MG CAP PO SCH ×2 (16:00→21:18)
[2019-10-27] MEDS: Melatonin 3 MG TAB PO SCH (21:18)
--- NOTE | 2019-10-28 00:02 | CON ---
DATE OF CONSULTATION: 10/27/2019 REASON FOR CONSULTATION: Right elbow olecranon bursitis. HISTORY OF PRESENT ILLNESS: A 24-year-old with history of obesity, sleep apnea , and cerebral palsy who is a resident at [facility] and has frequent falls, probably associated with her seizure disorder, and the last one injured her right elbow and she developed inflammatory process following that and had some fever and chills. Dr. Subramanian was consulted and on October 24 did an I and D of the right septic olecranon bursitis. The operative report was reviewed. There was purulent material after early dissection. The area was irrigated. Skin edges were trimmed. Deep tissues were curetted out. There was a cavity, which was cleansed and this was irrigated again. After that, the margins of the wound were loosely closed and packed. Currently, Ms. Calvo is awake. She has not a lot of ability to communicate. Her verbal communication is quite limited. She just nods yes and no. She denies headaches. No respiratory symptoms or abdominal pain. No genitourinary symptoms. MEDICAL HISTORY: Cerebral palsy, hypothyroidism, sleep apnea, obesity, seizure activity. SURGICAL HISTORY: Negative. SOCIAL HISTORY: [facility] resident. ALLERGIES: NSAIDS, DILANTIN, CHLORPROMAZINE, SULFA. CURRENT MEDICATIONS: 1. [place]. 2. Floranex. 3. Dulcolax. 4. Wellbutrin. 5. Cefepime. 6. Pepcid. 7. Vancomycin. PHYSICAL EXAMINATION: VITAL SIGNS: T-max 101.9. She is now 97.9, blood pressure 130/90, pulse 103, respirations 16, and O2 saturation 100. SKIN: With the area of olecranon bursa debridement, 2 stitches approximating partially the open wound area. Mild erythema surrounding it. HEENT: Ocular movements conjugate. Some degree of enophthalmos. Oral cavity, still quite a few teeth in place with some decay and gum disease. NECK: Supple. No jugular vein distention. Quite short neck. LUNGS: Symmetric air entry. CARDIOVASCULAR: S1 and S2. Regular rate. ABDOMEN: Soft. Not distended or tender. No ascites. No bladder distention. EXTREMITIES: No joint inflammatory activity outside the area of involvement. NEUROLOGICAL: She is awake. She is able to establish eye contact, but is able to nod yes and no, but does not communicate otherwise. LABORATORY DATA: White cell count was 19,000, now down to 14,000. Hemoglobin 11, platelets 301. Creatinine is 0.72. Sodium 151, albumin 3. Liver profile normal. Urinalysis 3+ blood, 0 to 3 wbc's. Morning Sun 0.217, which is twice the upper limit. Microbiology with methicillin-sensitive Staph aureus from the sample submitted from the elbow. Two sets of venous blood culture, no growth 48 hours. DIAGNOSTIC STUDIES: Elbow x-ray, swelling of soft tissue, but no bony erosive changes. ASSESSMENT: 1. Cerebral palsy with epilepsy. 2. Recurrent falls. 3. Infectious olecranon bursitis, right side with methicillin-sensitive Staphylococcus aureus abscess, status post surgical debridement. DISCUSSION: Those processes are usually associated with some healing delay because of the location of the wound and difficulty in keeping the area without flexion to allow closure of the wound. Sometimes osteomyelitis can develop in the olecranon process. Careful followup in the subsequent weeks to months will be necessary to early detection of those complications. For the time being, we will switch her to oral Keflex 500 mg 4 times daily and continue it for at least 3 weeks if not longer. If the blood cultures turn positive, we will have to add a second drug to the Keflex. Job ID: [id number] [facility]
[2019-10-28] MEDS: Lactated Ringer's 1,000 ML IV SCH ×2 (01:07→17:09)
[2019-10-28] MEDS: Acetaminophen 325 MG TAB PO PRN (02:54)
[2019-10-28] MEDS: HYDROcodone/Acetaminophen 5/325 mg Tablet PO PRN ×2 (03:47→20:49)
[2019-10-28 05:09] LABS: Anion Gap 14 mmol/L (10-20); BUN (Urea Nitrogen) 4 mg/dL (7.0-18.7); Calc. Creatinine Clearance 204 mL/min (70-130); Calcium 8.9 mg/dL (7.8-10.44); Carbon Dioxide 24 mmol/L (22-29); Chloride 113 mmol/L (98-107); Estimated GFR-MDRD Greater than 90; Glucose 96 mg/dL (70-105); Sodium 148 mmol/L (136-145)
[2019-10-28] MEDS: Levothyroxine Sodium 75 MCG TAB PO SCH (05:29)
[2019-10-28 06:11] LABS: #Basophils 0.1 thou/uL (0.0-0.2); #Eosinphils 0.3 thou/uL (0.0-0.7); #Lymphocytes 3.3 thou/uL (1.20-3.40); #Monocytes 1.1 thou/uL (0.11-0.59); #Neutrophils 10.5 thou/uL (1.40-6.50); %Basophils 0.5 % (0.0-1.0); %Eosinophils 1.7 % (0.0-10.0); %Lymphocytes 21.5 % (21.0-51.0); %Monocytes 7.1 % (0.0-10.0); %Neutrophils 69.2 % (42.0-75.0); Hemoglobin 11.1 g/dL (12.0-16.0); Mean Corpuscular HGB CONC 31.5 g/dL (32.0-36.0); Mean Corpuscular Hemoglobin 29.9 pg (27.0-31.0); Mean Platelet Volume 8.9 fL (7.4-10.4); Platelet Count 303 thou/uL (130-400); RBC Distribution Width 12.7 % (11.5-14.5); Red Blood Cell (RBC) Count 3.72 mill/uL (4.20-5.40); White Blood Cell (WBC) Count 15.2 thou/uL (4.8-10.8)
[2019-10-28] MEDS: Lactinex Tablet PO SCH (09:19)
[2019-10-28] MEDS: Cephalexin 250 MG CAP PO SCH ×4 (09:19→21:07)
[2019-10-28] MEDS: Nystatin Powder 15 GM BOT TOP SCH ×3 (09:20→21:08)
[2019-10-28] MEDS: Famotidine 20 MG TAB PO SCH ×2 (09:20→20:49)
[2019-10-28] MEDS: Lithium Carbonate ER 450 mg Tablet PO SCH (09:21)
[2019-10-28] MEDS: Polyethylene Glycol 3350 17 GM Packet PO SCH (09:22)
[2019-10-28] MEDS: Heparin 5,000 UNITS/ML VIAL SC SCH ×3 (09:22→20:48)
[2019-10-28] MEDS: Bupropion 100 MG SR TAB PO SCH (09:23)
--- NOTE | 2019-10-28 14:14 | PDOC.HOSPP ---
- Subjective Encounter Date: 10/28/19 Encounter Time: 07:20 Subjective: Pt seen for followup re: sepsis. More alert today. Denies any complaints. - Objective Vital Signs & Weight: Vital Signs (12 hours) Temp Pulse Resp BP Pulse Ox 10/28/19 12:00 97.9 F 99 16 158/111 H 100 10/28/19 08:50 100 10/28/19 07:56 97.7 F 95 16 124/83 100 10/28/19 03:39 99.5 F 77 16 131/90 100 Weight Admit Weight 220 lb 7.36 oz Weight 220 lb 7.36 oz I&O: 10/27/19 10/28/19 10/29/19 06:59 06:59 06:59 Intake Total 4632 500 Output Total 0449 1843 Balance -9021 -6240 Result Diagrams: 10/28/19 04:28 10/28/19 04:28 Additional Labs: Labs and MARs reviewed by me EKG Reviewed by me: Yes (Tele: NSR) Hospitalist ROS - Review of Systems Gastrointestinal: denies: nausea, vomiting, abdominal pain, diarrhea, constipation, melena, hematochezia Genitourinary: denies: dysuria, frequency, incontinence, hematuria, retention - Medication Medications: Active Medications Generic Name Dose Route Start Last Admin Trade Name Freq PRN Reason Stop Dose Admin Acetaminophen 650 mg 10/23/19 20:13 10/28/19 02:54 Tylenol PO 650 mg Q4H PRN Administration Headache/Fever/Mild Pain (1-3) Hydrocodone Bitart/Acetaminophen 1 tab 10/23/19 20:13 10/27/19 09:20 [place] 5/325 PO 1 tab Q4H PRN Administration Moderate Pain (4-6) Hydrocodone Bitart/Acetaminophen 2 tab 10/23/19 20:13 10/28/19 03:47 [place] 5/325 PO 2 tab Q4H PRN Administration Severe Pain (7-10) Acidophilus 1 tab 10/25/19 09:00 10/28/19 09:19 Floranex PO 1 tab DAILY TIFFANY Administration Bupropion HCl 300 mg 10/25/19 09:00 10/28/19 09:23 Wellbutrin Sr PO 300 mg DAILY TIFFANY Administration Cephalexin 500 mg 10/27/19 17:00 10/28/19 09:19 Keflex PO 500 mg QID TIFFANY Administration Cholecalciferol 3,000 units 10/25/19 09:00 10/28/19 09:20 Vitamin D3 PO 3,000 units DAILY TIFFANY Administration Famotidine 40 mg 10/24/19 21:00 10/28/19 09:20 Pepcid PO 40 mg BID TIFFANY Administration Heparin Sodium (Porcine) 5,000 units 10/23/19 21:00 10/28/19 09:22 Heparin SC 5,000 units TID TIFFANY Administration Lactated Ringer's 1,000 mls @ 75 mls/hr 10/24/19 11:45 10/28/19 01:07 Lactated Ringer's IV Not Given .[id number] TIFFANY Levothyroxine Sodium 75 mcg 10/25/19 06:00 10/28/19 05:29 Synthroid PO Not Given 0600 TIFFANY [place] Carbonate 900 mg 10/25/19 09:00 10/28/19 09:21 Eskalith Er PO 900 mg DAILY TIFFANY Administration Melatonin 6 mg 10/24/19 21:00 10/27/19 21:18 Melatonin PO Not Given HS TIFFANY Nystatin 0 gm 10/24/19 15:00 10/28/19 09:20 Mycostatin Powder TOP 1 applic TID TIFFANY Administration Polyethylene Glycol 8.5 gm 10/25/19 09:00 10/28/19 09:22 Miralax PO 8.5 gm DAILY TIFFANY Administration Sodium Chloride 10 ml 10/24/19 09:00 10/28/19 10:19 Flush - Normal Saline IVF Not Given Q12HR TIFFANY - Exam General Appearance: awake alert General - other findings: Obese Eye: anicteric sclera ENT: no oropharyngeal lesions, moist mucosa Neck: supple Heart: RRR, no rubs Respiratory: CTAB Gastrointestinal: soft, non-tender Extremities: no cyanosis Psychiatric: normal affect, normal behavior Hosp A/P - Plan - Assessment (1) Sepsis Code(s): A41.9 - SEPSIS, UNSPECIFIED ORGANISM Status: Acute (2) Olecranon bursitis Code(s): M00.9 - PYOGENIC ARTHRITIS, UNSPECIFIED Status: Acute (3) Cellulitis Code(s): L03.90 - CELLULITIS, UNSPECIFIED Status: Acute (4) Hypokalemia Status: Acute (5) Mood disorder Code(s): F39 - UNSPECIFIED MOOD [AFFECTIVE] DISORDER Status: Chronic (6) Bipolar 1 disorder Code(s): F31.9 - BIPOLAR DISORDER, UNSPECIFIED Status: Chronic - Plan Staph aureus in culture, antibiotic changed to cephalexin. Pt is clinically improving. Continue IV fluids Appreciate ID service input. Replace potassium (hypokalemia)
[2019-10-28] MEDS: Potassium Chloride 20 MEQ TAB PO SCH ×2 (14:24→21:06)
[2019-10-28] MEDS: Ondansetron ODT 4 MG TAB SL PRN (20:02)
[2019-10-28] MEDS: Melatonin 3 MG TAB PO SCH (20:48)
[2019-10-29] MEDS: Lactated Ringer's 1,000 ML IV SCH (03:53)
[2019-10-29 05:13] LABS: #Basophils 0.1 thou/uL (0.0-0.2); #Eosinphils 0.3 thou/uL (0.0-0.7); #Lymphocytes 4.9 thou/uL (1.20-3.40); #Monocytes 0.7 thou/uL (0.11-0.59); #Neutrophils 5.7 thou/uL (1.40-6.50); %Basophils 0.8 % (0.0-1.0); %Eosinophils 2.6 % (0.0-10.0); %Lymphocytes 42.2 % (21.0-51.0); %Monocytes 5.8 % (0.0-10.0); %Neutrophils 48.7 % (42.0-75.0); Hemoglobin 11.3 g/dL (12.0-16.0); Mean Corpuscular HGB CONC 31.3 g/dL (32.0-36.0); Mean Corpuscular Volume 95.7 fL (78.0-98.0); Mean Platelet Volume 8.6 fL (7.4-10.4); Platelet Count 369 thou/uL (130-400); RBC Distribution Width 12.8 % (11.5-14.5); Red Blood Cell (RBC) Count 3.76 mill/uL (4.20-5.40); White Blood Cell (WBC) Count 11.7 thou/uL (4.8-10.8)
[2019-10-29 05:31] LABS: Anion Gap 12 mmol/L (10-20); BUN (Urea Nitrogen) 6 mg/dL (7.0-18.7); Calc. Creatinine Clearance 195 mL/min (70-130); Calcium 9.1 mg/dL (7.8-10.44); Carbon Dioxide 25 mmol/L (22-29); Chloride 115 mmol/L (98-107); Estimated GFR-MDRD Greater than 90; Glucose 86 mg/dL (70-105); Potassium 3.6 mmol/L (3.5-5.1); Sodium 148 mmol/L (136-145)
[2019-10-29] MEDS: Levothyroxine Sodium 75 MCG TAB PO SCH (06:14)
[2019-10-29] MEDS: Bupropion 100 MG SR TAB PO SCH (09:17)
[2019-10-29] MEDS: Cephalexin 250 MG CAP PO SCH ×4 (09:18→21:58)
[2019-10-29] MEDS: Lithium Carbonate ER 450 mg Tablet PO SCH (09:18)
[2019-10-29] MEDS: Famotidine 20 MG TAB PO SCH ×2 (09:18→21:58)
[2019-10-29] MEDS: Polyethylene Glycol 3350 17 GM Packet PO SCH (09:19)
[2019-10-29] MEDS: Nystatin Powder 15 GM BOT TOP SCH ×3 (09:19→22:00)
[2019-10-29] MEDS: Heparin 5,000 UNITS/ML VIAL SC SCH ×3 (09:19→21:59)
[2019-10-29] MEDS: HYDROcodone/Acetaminophen 5/325 mg Tablet PO PRN (09:20)
[2019-10-29] MEDS: Lactinex Tablet PO SCH (09:33)
[2019-10-29] MEDS ORDERED: Cephalexin 250 MG CAP PO SCH (14:30)
[2019-10-29] MEDS: Ondansetron ODT 4 MG TAB SL PRN (15:21)
--- NOTE | 2019-10-29 16:50 | PDOC.HOSPP ---
- Subjective Encounter Date: 10/29/19 Encounter Time: 08:00 Subjective: Pt seen for followup re: sepsis. States she is doing well today. - Objective Vital Signs & Weight: Vital Signs (12 hours) Temp Pulse Resp BP Pulse Ox 10/29/19 16:00 98.6 F 71 20 131/89 100 10/29/19 12:07 98.7 F 85 18 160/102 H 99 10/29/19 08:00 98.1 F 100 20 124/81 96 Weight Admit Weight 220 lb 7.36 oz Weight 220 lb 7.36 oz I&O: 10/28/19 10/29/19 10/30/19 06:59 06:59 06:59 Intake Total 500 1900 2050 Output Total 6050 1200 2300 Balance -5550 700 -250 Result Diagrams: 10/29/19 05:05 10/29/19 05:05 Additional Labs: Labs and MARs reviewed by me EKG Reviewed by me: Yes (Tele: NSR) Hospitalist ROS - Review of Systems Cardiovascular: denies: chest pain, palpitations, orthopnea, paroxysmal noc. dyspnea, edema, light headedness Skin: denies: rash, lesions, jeana, bruising - Medication Medications: Active Medications Generic Name Dose Route Start Last Admin Trade Name Freq PRN Reason Stop Dose Admin Acetaminophen 650 mg 10/23/19 20:13 10/28/19 02:54 Tylenol PO 650 mg Q4H PRN Administration Headache/Fever/Mild Pain (1-3) Hydrocodone Bitart/Acetaminophen 1 tab 10/23/19 20:13 10/29/19 09:20 [place] 5/325 PO 1 tab Q4H PRN Administration Moderate Pain (4-6) Hydrocodone Bitart/Acetaminophen 2 tab 10/23/19 20:13 10/28/19 03:47 [place] 5/325 PO 2 tab Q4H PRN Administration Severe Pain (7-10) Acidophilus 1 tab 10/25/19 09:00 10/29/19 09:33 Floranex PO Not Given DAILY TIFFANY Bupropion HCl 300 mg 10/25/19 09:00 10/29/19 09:17 Wellbutrin Sr PO 300 mg DAILY TIFFANY Administration Cholecalciferol 3,000 units 10/25/19 09:00 10/29/19 09:18 Vitamin D3 PO 3,000 units DAILY TIFFANY Administration Famotidine 40 mg 10/24/19 21:00 10/29/19 09:18 Pepcid PO 40 mg BID TIFFANY Administration Heparin Sodium (Porcine) 5,000 units 10/23/19 21:00 10/29/19 15:21 Heparin SC 5,000 units TID TIFFANY Administration Levothyroxine Sodium 75 mcg 10/25/19 06:00 10/29/19 06:14 Synthroid PO 75 mcg 0600 TIFFANY Administration [place] Carbonate 900 mg 10/25/19 09:00 10/29/19 09:18 Eskalith Er PO 900 mg DAILY TIFFANY Administration Melatonin 6 mg 10/24/19 21:00 10/28/19 20:48 Melatonin PO 6 mg HS TIFFANY Administration Nystatin 0 gm 10/24/19 15:00 10/29/19 15:23 Mycostatin Powder TOP Not Given TID TIFFANY Ondansetron HCl 4 mg 10/28/19 16:07 10/29/19 15:21 Zofran Odt SL 4 mg Q6H PRN Administration Nausea/Vomiting Polyethylene Glycol 8.5 gm 10/25/19 09:00 10/29/19 09:19 Miralax PO 8.5 gm DAILY TIFFANY Administration Sodium Chloride 10 ml 10/24/19 09:00 10/29/19 09:19 Flush - Normal Saline IVF Not Given Q12HR TIFFANY - Exam General Appearance: awake alert Eye: anicteric sclera ENT: moist mucosa Neck: supple Heart: RRR Respiratory: CTAB Gastrointestinal: soft, non-tender Musculoskeletal: no muscle wasting Psychiatric: normal affect, normal behavior Hosp A/P - Plan - Assessment (1) Sepsis Code(s): A41.9 - SEPSIS, UNSPECIFIED ORGANISM Status: Acute (2) Olecranon bursitis Code(s): M00.9 - PYOGENIC ARTHRITIS, UNSPECIFIED Status: Acute (3) Hyponatremia Code(s): L03.90 - CELLULITIS, UNSPECIFIED Status: Acute (4) Mood disorder Code(s): F39 - UNSPECIFIED MOOD [AFFECTIVE] DISORDER Status: Chronic (5) Bipolar 1 disorder Code(s): F31.9 - BIPOLAR DISORDER, UNSPECIFIED Status: Chronic (6) Hypokalemia Status: Resolved - Plan continue keflex Hypernatremia ? secondary to [place] use, nephrology consulted Pt is clinically improving. Continue IV fluids
[2019-10-29] MEDS: Melatonin 3 MG TAB PO SCH (21:59)
[2019-10-30 04:51] LABS: Phosphorus 4.1 mg/dL (2.3-4.7)
[2019-10-30 04:55] LABS: Anion Gap 12 mmol/L (10-20); BUN (Urea Nitrogen) 8 mg/dL (7.0-18.7); Calc. Creatinine Clearance 177 mL/min (70-130); Calcium 9.6 mg/dL (7.8-10.44); Carbon Dioxide 27 mmol/L (22-29); Chloride 111 mmol/L (98-107); Estimated GFR-MDRD Greater than 90; Glucose 89 mg/dL (70-105); Potassium 3.6 mmol/L (3.5-5.1); Sodium 146 mmol/L (136-145)
[2019-10-30] MEDS: Levothyroxine Sodium 75 MCG TAB PO SCH (05:23)
[2019-10-30 05:26] LABS: #Basophils 0.1 thou/uL (0.0-0.2); #Eosinphils 0.3 thou/uL (0.0-0.7); #Lymphocytes 4.5 thou/uL (1.20-3.40); #Neutrophils 7.1 thou/uL (1.40-6.50); %Basophils 0.6 % (0.0-1.0); %Eosinophils 2.5 % (0.0-10.0); %Lymphocytes 34.7 % (21.0-51.0); %Neutrophils 54.2 % (42.0-75.0); Mean Corpuscular HGB CONC 31.6 g/dL (32.0-36.0); Mean Corpuscular Hemoglobin 30.2 pg (27.0-31.0); Mean Corpuscular Volume 95.5 fL (78.0-98.0); Mean Platelet Volume 8.6 fL (7.4-10.4); Platelet Count 356 thou/uL (130-400); Red Blood Cell (RBC) Count 3.97 mill/uL (4.20-5.40); White Blood Cell (WBC) Count 13.1 thou/uL (4.8-10.8)
[2019-10-30] MEDS: HYDROcodone/Acetaminophen 5/325 mg Tablet PO PRN (05:47)
[2019-10-30] MEDS: Lithium Carbonate ER 450 mg Tablet PO SCH (09:51)
[2019-10-30] MEDS: Bupropion 100 MG SR TAB PO SCH (09:52)
[2019-10-30] MEDS: Polyethylene Glycol 3350 17 GM Packet PO SCH (09:52)
[2019-10-30] MEDS: Cephalexin 250 MG CAP PO SCH ×3 (09:52→16:32)
[2019-10-30] MEDS: Lactinex Tablet PO SCH (09:56)
[2019-10-30] MEDS: Famotidine 20 MG TAB PO SCH (09:56)
[2019-10-30 09:59] VITALS: BP 137/94; TEMP 98.7
[2019-10-30] MEDS: Heparin 5,000 UNITS/ML VIAL SC SCH ×2 (10:07→16:26)
[2019-10-30] MEDS: Nystatin Powder 15 GM BOT TOP SCH ×2 (10:58→16:27)
--- NOTE | 2019-10-30 13:36 | CON ---
DATE OF CONSULTATION: 10/29/2019 SERVICE: Nephrology. REASON FOR CONSULTATION: Hypernatremia. REQUESTING PHYSICIAN: Dr. Rah Sandoval. HISTORY OF PRESENT ILLNESS: A 24-year-old female with known history of obesity, obstructive sleep apnea, cerebral palsy, and mood disorder, on lithium, who was brought in with right elbow swelling and injury associated with fever and chills. The patient was found to have olecranon bursitis and subsequently had incision and drainage and is currently on antibiotics. Patient prior to hospitalization was on lithium, but on presentation, plasma sodium was normal. During the course of this hospitalization, plasma sodium has increased progressively to a peak of 151. The patient reportedly has been having extensive tests and increased ingestion of free water including juice, soda and water. Despite increased free water intake, plasma sodium remained high, hence Nephrology consult. The patient with cerebral palsy , had some memory lapses and cognitive impairment and had a caregiver who provided some history as well. The patient reportedly refused most of her medications on several days prior to presentation, but since hospitalization has been consistent with her medication ingestion. Of note, is the fact that at presentation, sodium was 143 and lithium level at presentation was subtherapeutic at 0.2. The patient also reported increased urination even at night but denied diarrhea. She reported some nausea which has improved with last emesis being yesterday. She denied headache, dysuria, hematuria, abdominal pain, or chest pain. She has history of seizures but has not had any seizures since hospitalization. PAST MEDICAL HISTORY: 1. Cerebral palsy. 2. Hypothyroidism. 3. Obstructive sleep apnea. 4. Obesity. 5. Seizure disorder. 6. Mood disorder. PAST SURGICAL HISTORY: Incision and drainage of right olecranon bursa. SOCIAL HISTORY: The patient currently lives at [facility] ALLERGIES: NSAID, DILANTIN, CHLORPROMAZINE AND SULFA. MEDICATIONS: Prior to hospital, medications 1. Acetaminophen 650 p.o. t.i.d. p.r.n. 2. Dulcolax 10 mg suppository p.r.n. for constipation. 3. Bupropion 300 mg p.o. at 12 noon. 4. Calcium carbonate 500 mg q.i.d. p.r.n. 5. Cholecalciferol 3000 units p.o. daily. 6. Pepcid 40 mg p.o. b.i.d. 7. Lactobacillus one capsule p.o. daily. 8. OCP Negin one tablet p.o. daily. 9. Levothyroxine 75 mcg p.o. daily. 10. [place] carbonate ER 900 mg p.o. daily. 11. Melatonin-pyridoxine 1 tablet p.o. daily at bedtime. 12. Paliperidone palmitate, Invega Sustenna, 234 mg IM every 28 days. 13. MiraLAX 8.5 g p.o. daily. 14. Simethicone 80 mg p.o. t.i.d. p.r.n. Current hospital medications. 1. Wellbutrin 300 mg p.o. daily. 2. Keflex 500 mg q.i.d. 3. Cholecalciferol 3000 units p.o. daily. 4. Pepcid 40 mg p.o. b.i.d. 5. Heparin 5000 units t.i.d. 6. Lactobacillus one capsule daily. 7. Levothyroxine 75 mcg p.o. daily. 8. Bee 900 mg p.o. daily. 9. Melatonin 6 mg p.o. daily at bedtime. 10. Nystatin powder topical. 11. MiraLAX p.r.n. REVIEW OF SYSTEMS: 12-point review of systems was negative other than pertinent positives and negatives included in the history of present illness. PHYSICAL EXAMINATION: VITAL SIGNS: Temperature 98.1, pulse 100, respiratory rate 20, SpO2 of 96% on room air, blood pressure is 124/81. GENERAL: Obese female, in no obvious distress. Afebrile. Anicteric. Acyanotic. HEENT: Normocephalic, atraumatic. Oral mucosa is moist. NECK: Supple. Nontender with no JVD. CARDIOVASCULAR: Regular rhythm and rate with normal heart sounds 1 and 2. RESPIRATORY: Fair air entry bilaterally with no obvious crackle or rhonchi or use of accessory muscles. GI: Obese, soft, nontender, nondistended with normal bowel sounds. EXTREMITIES: Grossly normal looking atraumatic with no edema or erythema. ICT QUALITY ASSURANCE ENGINEER: Conscious, alert, oriented to person and place at least. Some cognitive impairment is noted. The patient has slow mentation. She moves all extremities. Cranial nerves 2 through 12 are grossly intact. DIAGNOSTIC DATA: CBC today showed WBC count 11.7, hemoglobin of 11.3, platelet of 369. Note that on presentation on October 22, WBC count was 19.2 and hemoglobin was 14.6. Chemistry today showed sodium 148, potassium 3.6, chloride 115, anion gap 25, BUN 6, creatinine 0.69, glucose 86, calcium 9.1. Note that on presentation on October 22, sodium was 143, potassium 4.4, chloride 109, CO2 of 23, BUN 5, creatinine 0.76. Liver enzymes were unremarkable. Also on October 27, the patient had potassium of 3.0. Urinalysis on October 25 showed colorless urine with pH of 6.0, specific gravity of 1.004, negative protein, normal glucose, negative ketone, 3+ blood, negative nitrite, bilirubin, and leukocyte esterase. Microscopy showed WBC of 0 to 3, RBC of 11 to 20. Note also that on October 25, sodium was 145, potassium 3.4, chloride 112 , CO2 of 21, BUN 6, creatinine 0.7. On October 23, random lithium level was 0.217. ASSESSMENT: 1. Hypernatremia: This in association with hypotonic solution with specific gravity of 1.004 in a patient on lithium is consistent with nephrogenic diabetes insipidus. The patient also reported increased thirst and increased oral fluid intake. 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 2. Hypokalemia. Repleted with potassium chloride. 3. Right olecranon bursitis with sepsis. Resolved with treatment. PLAN: 1. We will get urine osmolality and urine sodium. 2. [place] free water intake advised. 3. We will also get repeat lithium level. 4. We will recheck chemistry tomorrow morning. 5. Commencement of amiloride is contemplated. 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 I think this patient will benefit more from the lithium, hence, my intention to add amiloride so that she could continue to take her lithium. I do not want to stop lithium in this patient. However, I will refer her to the regular psychiatrist for psychiatric treatment, management and adjustment. Many thanks for involving us in the care of this patient. We will follow along with you. Job ID: [id number] [facility]
--- NOTE | 2019-10-30 13:48 | DIS ---
DATE OF ADMISSION: 10/23/2019 DATE OF DISCHARGE: 10/30/2019 PRIMARY CARE PROVIDER: Dr. Case Benz at [facility] in [place], [place]. DISCHARGE DIAGNOSES: 1. Sepsis. 2. Right elbow cellulitis. 3. Right olecranon bursitis. 4. Lactic acidosis. 5. Diabetes insipidus. 6. Hypernatremia. 7. Hypokalemia. CONDITION OF THE PATIENT ON THE DAY OF DISCHARGE: Stable. I assessed Ms. Rondon on the day of discharge. She denies any chest pain or shortness of breath. Vital signs are stable. S1 and S2 are heard, regular. Lungs are clear to auscultation bilaterally. CONSULTATIONS DURING THIS HOSPITALIZATION: 1. Orthopedic Surgery, Dr. Subramanian. 2. Infectious Diseases, Dr. Giordano. 3. Nephrology, Dr. Mendenhall. HOSPITAL COURSE: Ms. Rondon is a pleasant 24-year-old lady, who was admitted to [facility] on October 23, 2019, for sepsis secondary to right olecranon bursitis. She was seen by Orthopedic Surgery Service. She underwent incision and drainage for a right septic olecranon bursitis. The swab culture grew Staphylococcus aureus, that was resistant to amoxicillin and piperacillin, but was otherwise pansensitive. She was seen by Infectious Diseases Service and started on cephalexin. Her sodium started increasing after resumption of home medications. She was seen by Nephrology Service. It was felt that the hypernatremia was most likely secondary to diabetes insipidus from lithium use. This will need to be followed up as outpatient. She has been started on amiloride 5 mg 2 times a day. On the day of discharge, she has white count 13,100, hemoglobin 12, platelet count 356,000. Sodium 146, potassium 3.6, and creatinine 0.76. Final blood cultures and urine culture were negative. On October 29, her lithium level was 0.401. DISCHARGE MEDICATIONS: She has been started on amiloride 5 mg 2 times a day and cephalexin 500 mg 4 times a day, cephalexin to be continued for 1 more week, following which the site needs to be re-assessed. Otherwise, no change was made to her pre-admission home medications. Many thanks for allowing me to participate in your patient's care. Please feel free to contact me with any questions or concerns. POST ACUTE CARE FOLLOWUP: With Orthopedic Surgery Service in 10 days; with Nephrology, Dr. Mendenhall on November 09, 2019, at 11 a.m., with blood work to be done prior to that appointment; and with primary care provider in 1 day. DISCHARGE DESTINATION: [facility]. ACTIVITY: As tolerated. DIET: Regular diet. TIME SPENT: Total amount of time spent coordinating this discharge: 33 minutes. Job ID: [id number]
--- NOTE | 2019-10-30 13:51 | PRG ---
DATE OF SERVICE: 10/30/2019 SERVICE: Nephrology. SUBJECTIVE: A 24-year-old female with cognitive impairment, seen in follow up for hypernatremia. The patient is on lithium for mood disorder. Reports feeling better. Denied nausea, vomiting, or diarrhea. Still complaining of excessive thirst and increased water intake. OBJECTIVE: VITAL SIGNS: Temperature 98.7, pulse 91, respiratory rate 18, SpO2 of 98% on room air, blood pressure is 137/94. I and O in the last 24 hours showed total intake of 3650 with total output of 3500. GENERAL: Obese female, in no obvious distress. Afebrile. Anicteric. Acyanotic. HEENT: Normocephalic, atraumatic. Oral mucosa is moist. CARDIOVASCULAR: Regular rhythm and rate. Normal heart sounds one and two. RESPIRATORY: Good air entry bilaterally with no obvious crackle or rhonchi or use of accessory muscles. GI: Obese, soft, nontender, nondistended with normal bowel sounds. EXTREMITIES: Grossly normal looking, atraumatic with no obvious edema or erythema. DATABASE SOFTWARE TECHNICIAN: Conscious, alert, oriented x3. The patient has slow mentation. Cranial nerves 2 through 12 are grossly intact. DIAGNOSTIC DATA: CBC showed WBC count of 13.1, hemoglobin of 12.0, platelet of 356. Chemistry showed sodium 146, potassium 3.6, chloride 111, CO2 of 27, BUN 8, creatinine 0.76, glucose 89, calcium 9.6, magnesium is 2.0 and phosphorus is 4.1. Urine osmolality of October 28 was 81 and urine sodium was 30. [place] level performed earlier today is 0.4. ASSESSMENT: 1. 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 Sodium level is improving with liberal free water intake. 2. Polyuria: Due to diabetic insipidus. 3. 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 4. Right olecranon bursitis status post incision and drainage and on treatment. PLAN: 1. We will start amiloride 5 mg p.o. b.i.d. 2. Adair oral intake advised for now. 3. Other treatment as per primary attending. 4. Disposition: The patient can be discharged from Nephrology point of view on current medications including amiloride 5 mg p.o. b.i.d. 5. The patient will need follow up in the office with repeat labs. The patient is scheduled to be seen in the office on November 08 at 11 a.m. Job ID: [id number] MTDD
== END 2019-10-30 16:43 | disposition home or self-care (01) | DRG 854 ==
LOC: ERS 15:31 → 2SE 19:52 → SURG A 10-25 19:04 → 2SE 10-25 19:05
PROVIDERS: ADMIT Internal Medicine; ATTEND Internal Medicine
PROC: 0M930ZZ Drainage of Right Elbow Bursa and Ligament, Open Approach (ICD-10-PCS; principal; 2019-10-25)
PROC: 0RBL0ZZ Excision of Right Elbow Joint, Open Approach (ICD-10-PCS; 2019-10-25)
DX: A41.01 Sepsis due to Methicillin susceptible Staphylococcus aureus (principal); L03.113 Cellulitis of right upper limb; E87.2 Acidosis; E23.2 Diabetes insipidus; E87.0 Hyperosmolality and hypernatremia; Z16.11 Resistance to penicillins; Z16.29 Resistance to other single specified antibiotic; M71.121 Other infective bursitis, right elbow; E87.6 Hypokalemia; E03.9 Hypothyroidism, unspecified; K21.9 Gastro-esophageal reflux disease without esophagitis; G40.909 Epilepsy, unspecified, not intractable, without status epilepticus; F31.9 Bipolar disorder, unspecified; R29.6 Repeated falls; G80.9 Cerebral palsy, unspecified; G47.33 Obstructive sleep apnea (adult) (pediatric); Z88.2 Allergy status to sulfonamides; Z88.8 Allergy status to other drugs, medicaments and biological substances; Z79.890 Hormone replacement therapy; Z79.899 Other long term (current) drug therapy; Z68.35 Body mass index [BMI] 35.0-35.9, adult
CPT/HCPCS: 36415; 36416; 71045; 80048; 80053; 80178; 80202; 81001; 82553; 83605; 83735; 83935; 84100; 84300; 84443; 84484; 84703; 85025; 85652; 86140; 87040; 87070; 87077; 87086; 87186; 87205; 93005; 93010; 96365; 96375; J0692; J1644; J1885; J2001; J2060; J2250; J2704; J3010; J3370; J3490; J7030; Q0162

== ENCOUNTER 2020-12-04 06:11 | Day surgery (SDC) | payer MEDICAID ==
[2020-12-04] MEDS ORDERED: Fentanyl 100 MCG/2 ML VIAL ONE (07:54)
[2020-12-04] MEDS ORDERED: Ketamine 50 MG/ML (10ML VIAL) ONE (08:11)
== END 2020-12-04 09:35 | disposition home or self-care (01) ==
LOC: SDC 06:11
PROVIDERS: ATTEND Internal Medicine Gastroenterology
PROC: 0DB78ZX Excision of Stomach, Pylorus, Via Natural or Artificial Opening Endoscopic, Diagnostic (ICD-10-PCS; principal; 2020-12-04)
PROC: 0DB98ZX Excision of Duodenum, Via Natural or Artificial Opening Endoscopic, Diagnostic (ICD-10-PCS; principal; 2020-12-04)
DX: K31.89 Other diseases of stomach and duodenum (principal); K59.09 Other constipation; K21.9 Gastro-esophageal reflux disease without esophagitis; E03.9 Hypothyroidism, unspecified; E66.3 Overweight; Z68.35 Body mass index [BMI] 35.0-35.9, adult; Z88.2 Allergy status to sulfonamides; Z88.6 Allergy status to analgesic agent; Z88.8 Allergy status to other drugs, medicaments and biological substances; Z91.011 Allergy to milk products
CPT/HCPCS: 88305; 88312; J3010

== ENCOUNTER 2023-04-07 06:31 | Day surgery (SDC) | payer MEDICAID ==
[2023-04-02 13:30] VITALS: BMI 40.6
[2023-04-07 08:26] LABS: BHCG - Serum Negative (NEGATIVE); Pregs Control Background? CLEAR/WHITE (CLR/WHITE); Pregs Control Bar Appear? YES (CONTROL BAR)
[2023-04-07] MEDS ORDERED: PROPOFOL 200 MG/20 ML VIAL ONE (08:37)
== END 2023-04-07 09:57 | disposition home or self-care (01) ==
LOC: SDC 06:31
PROVIDERS: ATTEND Internal Medicine Gastroenterology
PROC: 0DB58ZX Excision of Esophagus, Via Natural or Artificial Opening Endoscopic, Diagnostic (ICD-10-PCS; principal; 2023-04-07)
PROC: 0DB68ZX Excision of Stomach, Via Natural or Artificial Opening Endoscopic, Diagnostic (ICD-10-PCS; principal; 2023-04-07)
PROC: 0D758ZZ Dilation of Esophagus, Via Natural or Artificial Opening Endoscopic (ICD-10-PCS; principal; 2023-04-07)
DX: K21.9 Gastro-esophageal reflux disease without esophagitis (principal); K29.50 Unspecified chronic gastritis without bleeding; F32.A Depression, unspecified; Z88.2 Allergy status to sulfonamides; Z88.6 Allergy status to analgesic agent; Z88.8 Allergy status to other drugs, medicaments and biological substances; Z79.899 Other long term (current) drug therapy
CPT/HCPCS: 84703; 88305; 88342; J2704